=== PATIENT | female | born 1965 | race American Indian/Alaskan Native ===

== ENCOUNTER 2021-04-22 14:23 | Emergency (ER) | payer OTHER ==
[2021-04-22 14:27] VITALS: BP 109/60
--- NOTE | 2021-04-22 20:22 | Emergency Department Report ---
Minor Respiratory - HPI Chief Complaint: Medical Clearance Stated Complaint: FLU LIKE SYMPTOMS Duration: 1 week Minor Respiratory: Yes Cough Other History: 55-year-old morbid obese -Russian female presents to the emergency room for 1 week history of cough intermittent nausea intermittent abdominal cramping. Patient states that she was seen at [facility] on and was given Zofran and another medication. Patient states she did not take it today. Patient denies any past medical history meds on a daily basis is not vaccinated. Denies any dysuria urinary frequency urgency. ED Review of Systems ROS: Stated complaint: FLU LIKE SYMPTOMS Other details as noted in HPI Comment: All other systems reviewed and negative Minor Respiratory Exam - Exam General: Vital signs noted. No distress. Alert and acting appropriately. HEENT: Yes Moist Mucous Membranes, No Pharyngeal Erythema, No Pharyngeal Exudates, No Rhinorrhea, No Conjuctival Injection, No Frontal Tenderness, No Maxillary Tenderness Ear: Neither TM Bulge, Neither TM Erythema, Neither EAC Pain, Neither EAC Discharge Neck: Yes Supple, No Adenopathy Lungs: Yes Good Air Exchange, No Wheezes, No Ronchi, No Stridor, No Cough, No Labored Respirations, No Retractions, No Use of Accessory Muscles, No Other Abnormal Lung Sounds Heart: Yes Regular, No Murmur Abdomen: Yes Normal Bowel Sounds, No Tenderness, No Peritoneal Signs Skin: No Rash, No Edema Neurologic: Alert and oriented, no deficits. Musculoskeletal: Unremarkable. ED Course Vital Signs 04/22/21 14:25 Temperature 98.7 F Pulse Rate 64 Respiratory 18 Rate Blood Pressure 109/60 [Left] O2 Sat by Pulse 99 Oximetry ED Medical Decision Making - Medical Decision Making 55-year-old morbid obese -Russian female presents to the emergency room for 1 week history of cough intermittent nausea intermittent abdominal cramping. Patient states that she was seen at [facility] on and was given Zofran and another medication. Patient states she did not take it today. Patient denies any past medical history meds on a daily basis is not vaccinated. Denies any dysuria urinary frequency urgency. Discussed with patient most likely has Covid or viral illness. Discussed with patient states that [id number] cough medication taker Zofran and medicine for her stomach as prescribed. Increase her fluid intake advance her diet as tolerated follow-up with a floor technician and a primary care provider. Critical care attestation.: If time is entered above; I have spent that time in minutes in the direct care of this critically ill patient, excluding procedure time. ED Disposition Clinical Impression: Suspected COVID-19 virus infection, Viral illness Disposition: HOME / SELF CARE / HOMELESS Is pt being admited?: No Does the pt Need Aspirin: No Condition: Stable Instructions: Viral Respiratory Infection, COVID-19 Frequently Asked Questions, COVID-19: How to Protect Yourself and Others - CDC, Prevent the Spread of COVID-19 if You Are Sick - [facility] Additional Instructions: Your symptoms appear most consistent with a nonspecific viral syndrome. However, given this current pandemic, COVID-19 is in the differential of possibilities. Despite your previous negative COVID-19 test, I do recommend repeat outpatient Covid 19 testing. In the meantime, isolate/quarantine yourself and stay away from anyone who is elderly, immunocompromised or chronically ill. You can use ibuprofen every 6-8 hours and Tylenol every 4-8 hours, using the dosing on the back of the bottle, as needed for any fever or body aches. Return to the emergency department with any worsening of your symptoms, development of chest pain or shortness of breath, or with any acute distress. Continue with your Zofran and your medicine for your stomach. Try [id number] cold medication for your cough. Increase your fluid intake advance your diet as tolerated. Follow-up with a doctor in floor technician. Referrals: [facility] [Provider Group] - 3-5 Days [facility] [Provider Group] - 3-5 Days Time of Disposition: 20:24
== END 2021-04-22 21:30 | disposition home or self-care (01) ==
LOC: ED 14:23
DX: B34.9 Viral infection, unspecified (principal); Z20.822 Contact with and (suspected) exposure to COVID-19
CPT/HCPCS: 99283